=== PATIENT | female | born 1965 | race Caucasian/White ===

== ENCOUNTER → 2021-09-20 | Outpatient (CLI) | payer BC ==
--- NOTE | 2021-09-20 14:28 | KCIC ---
EXAMINATION: MRI RIGHT UPPER EXTREMITY JOINT WITHOUT CONTRAST INDICATIONS: Right wrist pain. Medial wrist pain and swelling in the fifth digit since March TECHNIQUE: Multiplanar multisequence MRI of the right wrist was obtained without contrast. COMPARISON: None. FINDINGS: BONES AND CARTILAGE: Articular cartilage is grossly intact. There is scattered marrow edema in the ca rpal bones, greatest in the capitate, dorsal aspect of the lunate, and distal forearm aspect of the s caphoid. No discrete fracture. Tiny osteophytes at the first CMC joint. LIGAMENTS: There is a tear of the central articular disc of the TFCC. There are styloid and foveal at tachments are irregular but intact. Lunotriquetral scapholunate ligament are intact. TENDONS: There is fluid around the extensor carpi ulnaris tendon which is slightly thickened and has palmar subluxation. Mild longitudinal split tear of the extensor carpi radialis brevis tendon and mil d tenosynovitis of the second and third extensor compartments sheath. Mild tenosynovitis of the flexo r carpi radialis and flexor digitorum tendons. OTHER: There is a multilobulated cystic structure in the prestyloid recess measuring about 1 x 0.5 x 1.2 cm with surrounding soft tissue edema. Small joint effusion of the distal radioulnar joint and th roughout the wrist. Median and ulnar nerves are normal in appearance. There is subcutaneous edema michlele ng the ulnar aspect of the wrist. Muscles are normal. IMPRESSION: 1. Multilobulated cystic structure in the prestyloid recess with surrounding soft tissue edema, likel y a ganglion cyst. 2. The ganglion cyst appears to extend along the ulnar attachments of the TFCC, which are irregular b ut intact. There is a tear of the central articular disc of the TFCC. 3. Tenosynovitis and mild palmar subluxation of extensor carpi ulnaris tendon . 4. Mild longitudinal split tear of the extensor carpi radialis brevis. Mild tenosynovitis of the seco nd and third extensor compartments sheath. 5. Mild tenosynovitis of the flexor digitorum and flexor carpi radialis tendons. 6. Scattered marrow edema in the carpal bones, particular the capitate, lunate, and scaphoid. Electronically signed by: Opal Garcia MD (09/20/2021 2:26 PM) [facility]
== END ==
LOC: KCIC MRI 09:16
PROVIDERS: ATTEND Orthopaedic Surgery
DX: M25.731 Osteophyte, right wrist (principal); M67.431 Ganglion, right wrist; M65.88 Other synovitis and tenosynovitis, other site; M79.89 Other specified soft tissue disorders; R20.0 Anesthesia of skin
CPT/HCPCS: 73221